=== PATIENT | male | born 1945 | race Caucasian/White ===

== ENCOUNTER 2021-05-06 08:46 | Emergency (ER) | payer MEDICARE, SELFPAY ==
--- NOTE | ~2021-05-06 | XR_ITS ---
EXAMINATION: XR foot LT 2V DATE: 05/06/2021 09:22 INDICATION: Left foot injury with erythema to the second toe TECHNIQUE: Dorsoplantar and lateral views of the left foot were obtained. COMPARISON: None. FINDINGS: Bone alignment is normal. No fracture. Mild osteoarthritis at the first metatarsophalangeal joint. Sm all chronic juxta articular erosion with thin corticated margins at the medial head of the first meta tarsal small plantar calcaneal spur. IMPRESSION: 1. No acute osseous abnormality. 2. Mild osteoarthritis at the first metatarsophalangeal joint with chronic erosion at the medial head of the first metatarsal which could be related to gout. Reviewed, dictated and finalized at location A. IMPRESSION: 1. No acute osseous abnormality. 2. Mild osteoarthritis at the first metatarsophalangeal joint with chronic eros ion at the medial head of the first metatarsal which could be related to gout.
[2021-05-06 08:55] VITALS: BP 157/85; PULSE 61; RESP 16; TEMP 36.8; O2SAT 100
--- NOTE | 2021-05-06 09:55 | ED.GENADULT ---
HPI - General Adult General Chief complaint: Extremity Injury, Lower Stated complaint: L foot injury Time Seen by Provider: 05/06/21 09:36 Source: patient and RN notes reviewed History of Present Illness HPI narrative: Patient is a 75 y/o male complaining of left foot pain starting yesterday after his left foot was ran over by wheels of a pallet he was pulling. He describes his pain as burning and rates it as 10/10. His pain radiates up his foot and lower leg. He denies other injury. He also noted some bruise on his left toes. Related Data Allergies Allergy/AdvReac Type Severity Reaction Status Date / Time Sulfa (Sulfonamide Allergy Mild Anaphylaxis Verified 05/06/21 09:00 Antibiotics) MOXIFLOXACIN HCL Allergy Unknown Anaphylaxis Uncoded 05/06/21 09:00 Review of Systems Review of Systems: All systems reviewed & are unremarkable except as noted in HPI and below Musculoskeletal: Musculoskeletal: Reports as per HPI and Reports other (left foot pain) Exam Const: General: no acute distress and well developed Orientation/consciousness: oriented to person, oriented to place, oriented to time and patient oriented x3 Skin: General skin exam: normal color, turgor normal and ecchymosis (multiple left toes) Neuro: General: oriented to person, oriented to place, oriented to time and patient oriented x3 Cognition (Neuro): normal cognition Extrem: Left lower extremity: foot Details: tenderness and ecchymosis Psych: Appearance: grossly normal Mental Status: mental status grossly normal Affect: normal affect Course Vital Signs Vital signs: Vital Signs Temperature 36.8 C 05/06/21 08:55 Pulse Rate 61 05/06/21 08:55 Respiratory Rate 16 05/06/21 08:55 Blood Pressure 157/85 H 05/06/21 08:55 Pulse Oximetry 100 05/06/21 08:55 Temperature 36.8 C 05/06/21 08:55 Pulse Rate 88 05/06/21 10:11 Respiratory Rate 16 05/06/21 10:11 Blood Pressure 122/77 05/06/21 10:11 Pulse Oximetry 100 05/06/21 10:11 Medical Decision Making Vital Signs Vital Signs: Vital Signs Temperature 36.8 C 05/06/21 08:55 Pulse Rate 61 05/06/21 08:55 Respiratory Rate 16 05/06/21 08:55 Blood Pressure 157/85 H 05/06/21 08:55 Pulse Oximetry 100 05/06/21 08:55 Temperature 36.8 C 05/06/21 08:55 Pulse Rate 88 05/06/21 10:11 Respiratory Rate 16 05/06/21 10:11 Blood Pressure 122/77 05/06/21 10:11 Pulse Oximetry 100 05/06/21 10:11 Discharge Plan Discharge Clinical Impression: Contusion of foot, left Qualifiers: Encounter type: initial encounter Qualified Code(s): S90.32XA - Contusion of left foot, initial encounter Patient Disposition: Home, Self-Care Condition: Stable Instructions: Foot Contusion (ED) Follow-up/Referrals: PHYSICIAN NOT ON STAFF,NONSTAFF [Primary Care Provider] -
[2021-05-06 10:11] VITALS: BP 122/77; PULSE 88; RESP 16; O2SAT 100
== END 2021-05-06 10:12 | disposition home or self-care (01) ==
PROVIDERS: Emergency Provider Emergency Medicine
DX: S90.32XA Contusion of left foot, initial encounter (principal); W22.8XXA Striking against or struck by other objects, initial encounter
CPT/HCPCS: 73620; 99283

== ENCOUNTER 2021-05-15 14:01 | Emergency (ER) | payer MEDICARE, SELFPAY ==
--- NOTE | 2021-05-15 14:04 | ED.SKABFB ---
HPI - Skin/Abscess/Foreign Bdy General Chief complaint: Allergic Reaction Stated complaint: pos insect sting Time Seen by Provider: 05/15/21 14:04 Source: patient and RN notes reviewed History of Present Illness HPI narrative: Patient is a 75-year-old male who presents the urgent care with complaints of multiple bee stings to the back of the head, to the back into the right hand. Patient states that happened approximately 30 minutes ago while he was mowing. Patient has not taken anything prior to arrival. Denies of any throat swelling, difficulty breathing, shortness of breath. Patient appears anxious but otherwise no acute distress noted. Patient denies of any past history of a allergic reaction to insect sting/bite. Patient states he has no change in status since the initial bee stings and states that he was able to drop his dog off at the bat prior to coming to our facility. No other acute complaints. Patient aware of the plan of care. Some parts of this dictation were generated by voice recognition software and may contain typographical and/or grammatical inaccuracies. Related Data Home Medications Medication Instructions Recorded Confirmed atorvastatin 05/15/21 gabapentin 05/15/21 Allergies Allergy/AdvReac Type Severity Reaction Status Date / Time Sulfa (Sulfonamide Allergy Mild Anaphylaxis Verified 05/15/21 14:09 Antibiotics) MOXIFLOXACIN HCL Allergy Unknown Anaphylaxis Uncoded 05/15/21 14:09 Review of Systems Review of Systems: CONSTITUTIONAL: Denies fever, chills, or sweats. EYES: Denies visual changes, redness, or discharge. ENT: Denies rhinorrhea, congestion, sore throat, or otalgia. CARDIOVASCULAR: Denies chest pain, palpitations, or edema. RESPIRATORY: Denies cough or dyspnea. GASTROINTESTINAL: Denies abdominal pain, nausea, vomiting, or diarrhea. GENITOURINARY: Denies dysuria or hematuria. SKIN: Reports of multiple bee stings to the back of the head, back and right hand MUSCULOSKELETAL: Denies back pain, joint pain, or myalgia. NEUROLOGIC: Denies headache, numbness, or weakness. All other systems reviewed are negative, except as documented in HPI. PMFSH Comments At the time of my signature, I reviewed and agree with the nursing past medical, surgical, social, and family history. There is no relevant family history pertinent to the patient complaint. Exam Narrative: GENERAL: This is a well-nourished, well-developed patient, in no apparent distress. HEAD: normocephalic, atraumatic. EYES: PERRL. Sclera clear/white. Vision is grossly intact. EARS: External ears normal NOSE: External nose normal with no obvious nasal discharge, nares without redness, no rhinorrhea. THROAT: Mucous membranes moist, posterior pharynx clear. Mild postnasal drainage NECK: Neck supple, non-tender without lymphadenopathy CARDIOVASCULAR: Regular rate and rhythm without murmurs, gallops, or rubs. RESPIRATORY: Clear to auscultation. Breath sounds equal bilaterally. No wheezes, rales, or rhonchi. SKIN: Mild localized erythema noted to the dorsal right thumb, mild localized erythema noted to the right thoracic region without edema. Very mild edema and erythema noted to the occipital region of the scalp with mild tenderness to the left occipital. Warm, intact with no suspicious lesions or rash, good texture and turgor. NEURO: awake, alert, and oriented to person, place and time. There were no obvious focal neurologic abnormalities. EXTREMITIES: No clubbing, cyanosis, or edema. Course Vital Signs Vital signs: Vital Signs Temperature 97.7 F 05/15/21 14:09 Pulse Rate 84 05/15/21 14:09 Respiratory Rate 16 05/15/21 14:09 Blood Pressure 149/85 H 05/15/21 14:09 Pulse Oximetry 98 05/15/21 14:09 Temperature 97.7 F 05/15/21 14:09 Pulse Rate 84 05/15/21 14:09 Respiratory Rate 16 05/15/21 14:09 Blood Pressure 149/85 H 05/15/21 14:09 Pulse Oximetry 98 05/15/21 14:09 Reviewed-patient is informed
[2021-05-15 14:09] VITALS: BP 149/85; PULSE 84; RESP 16; TEMP 36.5; O2SAT 98
[2021-05-15] MEDS: predniSONE 20 MG TABLET 60 MG PO (14:25)
== END 2021-05-15 14:30 | disposition home or self-care (01) ==
PROVIDERS: Emergency Provider Nurse Practitioner Family
DX: T63.441A Toxic effect of venom of bees, accidental (unintentional), initial encounter (principal); E78.00 Pure hypercholesterolemia, unspecified
CPT/HCPCS: 99213; G0463; J7512

== ENCOUNTER 2021-10-13 09:16 | Emergency (ER) | payer MEDICARE, SELFPAY ==
[2021-10-13 09:25] VITALS: BP 152/82; PULSE 67; RESP 16; TEMP 36.2; O2SAT 99
--- NOTE | 2021-10-13 09:53 | ED.EXTPRO ---
HPI - Extremity Problem General Chief complaint: Extremity Problem,Nontraumatic Stated complaint: swelling left hand Time Seen by Provider: 10/13/21 09:50 Source: patient Mode of arrival: ambulatory Limitations: no limitations History of Present Illness HPI Narrative: 76-year-old male presented for complaints of left hand swelling and redness since yesterday. 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 States difficult to make fist. endorses pain is 5 out of 10 has not taken anything for pain. denies extremity numbness, tingling, color change, fever/chills. Related Data Home Medications Medication Instructions Recorded Confirmed atorvastatin 10 mg PO DAILY 05/15/21 10/13/21 gabapentin 600 mg PO TID 05/15/21 10/13/21 fluticasone propionate 2 mcg INTRANASAL DAILY 10/13/21 10/13/21 Allergies Allergy/AdvReac Type Severity Reaction Status Date / Time Sulfa (Sulfonamide Allergy Mild Anaphylaxis Verified 10/13/21 09:45 Antibiotics) MOXIFLOXACIN HCL Allergy Unknown Anaphylaxis Uncoded 10/13/21 09:45 Review of Systems Review of Systems: CONSTITUTIONAL: Denies body aches, fever, chills, or sweats. EYES: Denies visual changes, redness, or discharge. ENT: Denies rhinorrhea, congestion, sore throat, or otalgia. CARDIOVASCULAR: Denies chest pain, palpitations, or edema. RESPIRATORY: Denies cough or dyspnea. GASTROINTESTINAL: Denies abdominal pain, nausea, vomiting, or diarrhea. GENITOURINARY: Denies dysuria or hematuria. SKIN: endorses swelling/redness left hand. Denies rash, itching, or wounds. MUSCULOSKELETAL: Denies back pain, joint pain, or myalgia. NEUROLOGIC: Denies headache, numbness, tingling, or weakness. PSYCH: Denies depression or anxiety. PMFSH Comments At time of signature, I have reviewed and agree with nursing past medical, surgical, social and family history unless otherwise noted. Please see nursing chart for further information. There is no relevant family history pertinent to the presenting complaint Exam Narrative: GENERAL: Well-appearing, well-nourished, and in no acute distress. HEAD: Normocephalic, atraumatic. EYES: EOMI. No redness or drainage. Conjunctivae normal. ENT: Mucous membranes pink and moist. No rhinorrhea. TMs normal bilaterally. Throat normal. Uvula midline. NECK: Normal AROM. Supple. No lymphadenopathy. CHEST: No respiratory distress. Clear to auscultation. HEART: Regular rate and rhythm. No murmur appreciated. Normal peripheral pulses. ABDOMEN: Soft, nontender, nondistended, normal active bowel sounds. MUSCULOSKELETAL: No bony tenderness. EXTREMITIES: Normal range of motion. No edema. SKIN: left hand contusion between 2nd/3rd MCP joints approx 2 inch diameter, mild swelling, no warmth or streaking, Capillary refill normal. NEURO: No focal deficits. Alert and oriented x3. Gait steady. PSYCH: Normal affect. No signs of depression or anxiety. Course Course Emergency Course: Patient is aware of diagnosis, understands and agrees to treatment plan. Anticipatory guidance given. Patient agrees to follow-up as directed and is aware of reasons to seek care at the emergency department. Portions of this record may have been created with voice recognition software Level of Care: Express Care Visit Vital Signs Vital signs: Vital Signs Temperature 97.2 F L 10/13/21 09:25 Pulse Rate 67 10/13/21 09:25 Respiratory Rate 16 10/13/21 09:25 Blood Pressure 152/82 H 10/13/21 09:25 Pulse Oximetry 99 10/13/21 09:25 Temperature 97.2 F L 10/13/21 09:25 Pulse Rate 67 10/13/21 09:25 Respiratory Rate 16 10/13/21 09:25 Blood Pressure 152/82 H 10/13/21 09:25 Pulse Oximetry 99 10/13/21 09:25 reviewed MDM - Extremity (Nontraumatic) MDM Narrative Medical decision making narrative: Dermatitis, superficial thrombophlebitis, cellulitis, gout, contusion. Discharge Plan Discharge Clinical Impression: Contusion of hand
== END 2021-10-13 10:05 | disposition home or self-care (01) ==
PROVIDERS: Emergency Provider Nurse Practitioner Family
DX: S60.222A Contusion of left hand, initial encounter (principal); X58.XXXA Exposure to other specified factors, initial encounter; E78.00 Pure hypercholesterolemia, unspecified
CPT/HCPCS: 99211; G0463

== ENCOUNTER 2022-05-13 07:51 | Emergency (ER) | payer MEDICARE, SELFPAY ==
[2022-05-13 08:05] VITALS: BP 170/89; PULSE 73; RESP 16; TEMP 36.4; O2SAT 97
--- NOTE | 2022-05-13 08:07 | ED.URI ---
HPI - URI/Sore Throat General Chief Complaint: Upper Respiratory Infection Stated Complaint: URI Time Seen by Provider: 05/13/22 07:59 History of Present Illness HPI Narrative: pt says last 2 days congestion head with no f/sore throat sinus drainage núñez cp cough sick contacts or travel and laying down at night taking otc sinus cold meds helping then worse getting up also taking seasonal allergy sprays and doesn't seem to help not sure if cause or not got boosters/vaccine to covid and flu no smoking. says patrick't had sinus infection in yrs but has h/o of it Related Data Home Medications Medication Instructions Recorded Confirmed atorvastatin 10 mg tablet 10 mg PO DAILY 05/15/21 10/13/21 gabapentin 600 mg tablet 600 mg PO TID 05/15/21 10/13/21 fluticasone propionate 50 2 mcg intranasal DAILY 10/13/21 10/13/21 mcg/actuation nasal spray,suspension Allergies Allergy/AdvReac Type Severity Reaction Status Date / Time Sulfa (Sulfonamide Allergy Mild Anaphylaxis Verified 05/13/22 08:08 Antibiotics) MOXIFLOXACIN HCL Allergy Unknown Anaphylaxis Uncoded 05/13/22 08:08 Review of Systems Constitutional: Comments: CONSTITUTIONAL: Denies fever, chills, or sweats. EYES: Denies visual changes, redness, or discharge. ENT: Denies rhinorrhea, but has congestion,no sore throat, or otalgia. CARDIOVASCULAR: Denies chest pain, palpitations, or edema. RESPIRATORY: Denies cough or dyspnea. GASTROINTESTINAL: Denies abdominal pain, nausea, vomiting, or diarrhea. GENITOURINARY: Denies dysuria or hematuria. SKIN: Denies rash or itching. MUSCULOSKELETAL: Denies back pain, joint pain, or myalgia. NEUROLOGIC: Denies headache, numbness, or weakness. PSYCHIATRIC: Denies anxiety or depression. Exam Const: Other: APPEARANCE: Well appearing, no pain in distress, well-nourished. Head normocephalic atraumtaic. no sinus pain on exam EYES: PERRLA/EOMI, conjunctivae very clear. NOSE: Normal no drainage EARS:TMS clear Consuelo Ruiz, with good light reflex. THROAT: Pharynx clear, no exudate. NECK: Supple. No adenopathy, no masses. RESPIRATORY: Airway patent, repsirations nonlabored. Clear to auscultation bilaterally, no rales, rhonchi, wheezing. CARDIOVASCULAR: Regular rate and rhythm without murmurs rubs or gallops. ABDOMINAL: Soft, nontender, nondistended, no hepatosplenomegally MUSCULOSKELETAl: Moves all extremities. Strenght/ROM intact, No edema, No calf tenderness. NEURO: Alert. Cranial nerves II through XII intact. Good gait. Good coordination SKIN:: Warm, dry. Normal Color PSYCHIATRIC: Normal affect/mood, normal interaction with parents. Course Reevaluation(s) Reevaluation #1: updated [place] 0815 good with plan for prednisone continue otc home meds and f/u his doc explained s/s and timeline for abx pt good with this Vital Signs Vital signs: Vital Signs Temperature 36.4 C 05/13/22 08:05 Pulse Rate 73 05/13/22 08:05 Respiratory Rate 16 05/13/22 08:05 Blood Pressure 170/89 H 05/13/22 08:05 Pulse Oximetry 97 05/13/22 08:05 Oxygen Delivery Room Air 05/13/22 08:05 Temperature 36.2 C L 05/13/22 09:08 Pulse Rate 61 05/13/22 09:08 Respiratory Rate 16 05/13/22 08:05 Blood Pressure 152/89 H 05/13/22 09:08 Pulse Oximetry 97 05/13/22 09:08 Oxygen Delivery Room Air 05/13/22 08:05 MDM - URI/Sore Throat Lab Data Labs: Lab Results 05/13/22 Range/Units 08:19 SARS-CoV-2 RNA (RT-PCR) Negative Discharge Plan Discharge Clinical Impression: Congested nose Patient Disposition: Home, Self-Care Condition: Stable Instructions: Antibiotic Form, Allergic Rhinitis (ED), Cold Symptoms (ED) Additional Instructions: continue your nasal spray and the otc cold meds for congestion, add the prednisone and call your doc for further care, return for new/worsening symptoms and if continuing issues for 10-14 days you may need antibiotics Prescriptions: New prednisone 20 mg tablet 20 mg PO ABDIFATAH
[2022-05-13 09:00] LABS: SARS-CoV-2 RNA PCR Negative
[2022-05-13 09:08] VITALS: BP 152/89; PULSE 61; TEMP 36.2; O2SAT 97
[2022-05-13 09:47] VITALS: BP 158/83; PULSE 82; RESP 18; O2SAT 99
== END 2022-05-13 09:48 | disposition home or self-care (01) ==
PROVIDERS: Emergency Provider Emergency Medicine
DX: R09.81 Nasal congestion (principal); Z20.822 Contact with and (suspected) exposure to COVID-19
CPT/HCPCS: 99283; C9803; U0003; U0005